=== PATIENT | male | born 1960 | race Caucasian/White ===

== ENCOUNTER 2021-01-27 16:40 | Emergency (ER) | payer OTHER ==
[2021-01-27 17:10] VITALS: BP 149/79; PULSE 92; TEMP 99.9; BMI 23.6
== END 2021-01-27 19:15 | disposition home or self-care (01) ==
LOC: FER 16:40
DX: B34.9 Viral infection, unspecified (principal)
CPT/HCPCS: 87651; 87804; 99283-25; C9803; U0003; U0005